=== PATIENT | male | born 1950 | race Caucasian/White ===

== ENCOUNTER 2021-11-20 16:44 | Inpatient (IN) | payer OTHER ==
[2021-11-20] MEDS ORDERED: MAGNESIUM HYDROX 2400MG/30ML ORAL SUSPENSION 30 ML CUP PO PRN (17:34)
[2021-11-20] MEDS ORDERED: MAG HYDROX/AL HYDROX/SIMETH 30 ML UNIT-DOSE CUP PO PRN (17:34)
[2021-11-20] MEDS ORDERED: DICYCLOMINE HCL 10 MG CAPSULE PO PRN (17:34)
[2021-11-20] MEDS ORDERED: NICOTINE 10 MG CARTRIDGE (INHALER) IH PRN (17:34)
[2021-11-20] MEDS ORDERED: IBUPROFEN 600 MG TABLET (FP) PO PRN (17:34)
[2021-11-20] MEDS ORDERED: ACETAMINOPHEN 325 MG TABLET (FP) PO PRN ×2 (17:34)
[2021-11-20] MEDS ORDERED: IBUPROFEN 400 MG TABLET (FP) PO PRN (17:34)
[2021-11-20] MEDS ORDERED: MAGNESIUM CITRATE 300 ML BOTTLE PO PRN (17:34)
[2021-11-20] MEDS ORDERED: LOPERAMIDE HCL 2 MG CAPSULE PO PRN (17:34)
[2021-11-20] MEDS ORDERED: BENZOCAINE/MENTHOL (CHLORASEPTIC ) LOZENGE MM PRN (17:34)
[2021-11-20] MEDS ORDERED: cloNIDine HCL 0.1 MG TABLET PO PRN (17:34)
[2021-11-20] MEDS ORDERED: NALOXONE HCL (KLOXXADO) 8 MG SPRAY NS PRN (17:34)
[2021-11-20] MEDS ORDERED: METHOCARBAMOL 500 MG TABLET PO PRN (17:34)
[2021-11-20] MEDS ORDERED: methaDONE HCL 10 MG TABLET (FOR DETOX USE ONLY) PO ONE (17:34)
[2021-11-20] MEDS ORDERED: BISMUTH SUBSALICYLATE 524 MG/30 ML PO PRN (17:34)
[2021-11-20 18:14] VITALS: BMI 24.5
[2021-11-20] MEDS: MELATONIN 5 MG TABLETS PO SCH (22:12)
[2021-11-20] MEDS: THIAMINE HCL 100 MG TABLET (FP) PO SCH (22:12)
[2021-11-21 09:45] LABS: HEMOGLOBIN 12.1 GM/dL (11.7-16.9); MCH 31.8 pg (25.7-33.7); MCHC 35.8 g/dl (32.0-35.9); MEAN PLT VOLUME 7.8 fl (7.5-11.1); PLATELET COUNT 135 10^3/uL (134-434); RBC 3.82 M/mm3 (4.00-5.60); RDW 13.7 % (11.9-15.9); WHITE BLOOD COUNT 4.9 K/mm3 (4.0-10.0)
[2021-11-21] MEDS ORDERED: methaDONE HCL 10 MG TABLET (FOR DETOX USE ONLY) PO ONE (10:00)
[2021-11-21 10:08] LABS: ALBUMIN 3.1 g/dl (3.4-5.0); CALCIUM 8.2 mg/dL (8.5-10.1)
[2021-11-21 10:09] LABS: CREATININE 0.8 mg/dL (0.55-1.3)
[2021-11-21 10:10] LABS: TOT PROT 6.2 g/dl (6.4-8.2)
[2021-11-21 10:11] LABS: BILIRUBIN,TOTAL 0.5 mg/dL (0.2-1)
[2021-11-21] MEDS: PRENATAL VITAMINS W/ FOLIC ACID TABLET (FP) PO SCH (10:16)
[2021-11-21] MEDS: ATENOLOL 25 MG TABLET (FP) PO SCH (10:16)
[2021-11-21] MEDS: ASPIRIN 81 MG CHEWABLE TABLETS PO SCH (10:16)
[2021-11-21] MEDS: THIAMINE HCL 100 MG TABLET (FP) PO SCH (22:28)
[2021-11-21] MEDS: MELATONIN 5 MG TABLETS PO SCH (22:28)
[2021-11-22] MEDS ORDERED: methaDONE HCL 10 MG TABLET (FOR DETOX USE ONLY) PO ONE (10:00)
[2021-11-22] MEDS: PRENATAL VITAMINS W/ FOLIC ACID TABLET (FP) PO SCH (10:09)
[2021-11-22] MEDS: ASPIRIN 81 MG CHEWABLE TABLETS PO SCH (10:09)
[2021-11-22] MEDS: ATENOLOL 25 MG TABLET (FP) PO SCH (10:10)
[2021-11-22] MEDS: MELATONIN 5 MG TABLETS PO SCH (22:23)
[2021-11-22] MEDS: THIAMINE HCL 100 MG TABLET (FP) PO SCH (22:23)
[2021-11-23] MEDS ORDERED: methaDONE HCL 10 MG TABLET (FOR DETOX USE ONLY) PO ONE ×2 (10:00)
[2021-11-23] MEDS: PRENATAL VITAMINS W/ FOLIC ACID TABLET (FP) PO SCH (10:25)
[2021-11-23] MEDS: ASPIRIN 81 MG CHEWABLE TABLETS PO SCH (10:25)
[2021-11-23] MEDS: ATENOLOL 25 MG TABLET (FP) PO SCH (10:25)
[2021-11-23] MEDS: THIAMINE HCL 100 MG TABLET (FP) PO SCH (22:33)
[2021-11-23] MEDS: MELATONIN 5 MG TABLETS PO SCH (22:33)
[2021-11-24] MEDS ORDERED: methaDONE HCL 10 MG TABLET (FOR DETOX USE ONLY) PO ONE (10:00)
[2021-11-24] MEDS: ATENOLOL 25 MG TABLET (FP) PO SCH (10:11)
[2021-11-24] MEDS: PRENATAL VITAMINS W/ FOLIC ACID TABLET (FP) PO SCH (10:11)
[2021-11-24] MEDS: ASPIRIN 81 MG CHEWABLE TABLETS PO SCH (10:11)
[2021-11-24 12:53] VITALS: RESP 18
[2021-11-24] MEDS: MELATONIN 5 MG TABLETS PO SCH (22:37)
[2021-11-24] MEDS: THIAMINE HCL 100 MG TABLET (FP) PO SCH (22:37)
[2021-11-25 08:51] VITALS: BP 104/69; PULSE 78; TEMP 97.7
[2021-11-25] MEDS: ATENOLOL 25 MG TABLET (FP) PO SCH (09:02)
[2021-11-25] MEDS: PRENATAL VITAMINS W/ FOLIC ACID TABLET (FP) PO SCH (09:02)
[2021-11-25] MEDS: ASPIRIN 81 MG CHEWABLE TABLETS PO SCH (09:02)
== END 2021-11-25 09:14 | disposition home or self-care (01) | DRG 897 ==
LOC: YASAS 16:44 → Y3N 18:13
PROVIDERS: ADMIT Allergy & Immunology; ATTEND Surgery
PROC: HZ2ZZZZ Detoxification Services for Substance Abuse Treatment (ICD-10-PCS; principal; 2021-11-20)
DX: F11.23 Opioid dependence with withdrawal (principal); F12.20 Cannabis dependence, uncomplicated; F17.210 Nicotine dependence, cigarettes, uncomplicated; F32.A Depression, unspecified; I10 Essential (primary) hypertension; K74.60 Unspecified cirrhosis of liver; E11.9 Type 2 diabetes mellitus without complications; Z79.84 Long term (current) use of oral hypoglycemic drugs; M54.50 Low back pain, unspecified; G89.29 Other chronic pain; Z86.19 Personal history of other infectious and parasitic diseases
CPT/HCPCS: 36415; 80053; 82962; 85027; 86780; 93005; 93010; C9803-CS; U0003; U0005

== ENCOUNTER 2022-03-02 14:27 | Inpatient (IN) | payer OTHER ==
[2022-03-02 15:46] VITALS: BMI 23.6
[2022-03-02] MEDS ORDERED: BISMUTH SUBSALICYLATE 524 MG/30 ML PO PRN (16:43)
[2022-03-02] MEDS ORDERED: ONDANSETRON *ODT* 4 MG TABLET SL PRN (16:43)
[2022-03-02] MEDS ORDERED: BENZOCAINE/MENTHOL (CHLORASEPTIC ) LOZENGE MM PRN (16:43)
[2022-03-02] MEDS ORDERED: MAG HYDROX/AL HYDROX/SIMETH 30 ML UNIT-DOSE CUP PO PRN (16:43)
[2022-03-02] MEDS ORDERED: LOPERAMIDE HCL 2 MG CAPSULE PO PRN (16:43)
[2022-03-02] MEDS ORDERED: NALOXONE HCL 0.4 MG/ML VIAL IM PRN (16:43)
[2022-03-02] MEDS ORDERED: IBUPROFEN 600 MG TABLET (FP) PO PRN (16:43)
[2022-03-02] MEDS ORDERED: DICYCLOMINE HCL 10 MG CAPSULE PO PRN (16:43)
[2022-03-02] MEDS ORDERED: NALOXONE HCL (KLOXXADO) 8 MG SPRAY NS PRN (16:43)
[2022-03-02] MEDS ORDERED: P-EPHED 60MG/TRIPROLIDI 2.5MG TABLET PO PRN (16:43)
[2022-03-02] MEDS ORDERED: ACETAMINOPHEN 325 MG TABLET (FP) PO PRN ×2 (16:43)
[2022-03-02] MEDS ORDERED: MAGNESIUM HYDROX 2400MG/30ML ORAL SUSPENSION 30 ML CUP PO PRN (16:43)
[2022-03-02] MEDS ORDERED: POLYETHYLENE GLYCOL (HEALTHYLAX) 3350 17 GM PACKET PO PRN (16:43)
[2022-03-02] MEDS ORDERED: guaiFENesin 200 MG/10 ML 10 ML UNIT-DOSE CUPS PO PRN (16:43)
[2022-03-02] MEDS ORDERED: IBUPROFEN 400 MG TABLET (FP) PO PRN (16:43)
[2022-03-02] MEDS: ASPIRIN 81 MG CHEWABLE TABLETS PO SCH (19:00)
[2022-03-02] MEDS: THIAMINE HCL 100 MG TABLET (FP) PO SCH (22:18)
[2022-03-03] MEDS ORDERED: methaDONE HCL 10 MG TABLET (FOR DETOX USE ONLY) PO ONE (09:39)
[2022-03-03] MEDS: ASPIRIN 81 MG CHEWABLE TABLETS PO SCH (10:17)
[2022-03-03] MEDS: PRENATAL VITAMINS W/ FOLIC ACID TABLET (FP) PO SCH (10:17)
[2022-03-03 11:24] LABS: HEMATOCRIT 37.6 % (35.4-49); HEMOGLOBIN 13.2 GM/dL (11.7-16.9); MCH 31.1 pg (25.7-33.7); MEAN CELL VOLUME 88.9 fl (80-96); MEAN PLT VOLUME 8.1 fl (7.5-11.1); PLATELET COUNT 165 10^3/uL (134-434); RBC 4.23 M/mm3 (4.00-5.60); RDW 13.3 % (11.9-15.9); WHITE BLOOD COUNT 5.4 K/mm3 (4.0-10.0)
[2022-03-03] MEDS: ATENOLOL 25 MG TABLET (FP) PO SCH (12:40)
[2022-03-03 12:51] LABS: ALBUMIN 3.5 g/dl (3.4-5.0); BLOOD UREA NITROGEN 17.1 mg/dL (7-18); CALCIUM 8.9 mg/dL (8.5-10.1)
[2022-03-03 12:54] LABS: CREATININE 0.9 mg/dL (0.55-1.3)
[2022-03-03 12:56] LABS: BILIRUBIN,TOTAL 0.8 mg/dL (0.2-1)
[2022-03-03 13:24] LABS: HIV INTERPRETATION NEGATIVE (NEGATIVE)
[2022-03-03] MEDS: THIAMINE HCL 100 MG TABLET (FP) PO SCH (22:38)
[2022-03-04] MEDS: ATENOLOL 25 MG TABLET (FP) PO SCH (10:24)
[2022-03-04] MEDS: ASPIRIN 81 MG CHEWABLE TABLETS PO SCH (10:24)
[2022-03-04] MEDS: PRENATAL VITAMINS W/ FOLIC ACID TABLET (FP) PO SCH (10:24)
[2022-03-04] MEDS: THIAMINE HCL 100 MG TABLET (FP) PO SCH (23:15)
[2022-03-05] MEDS ORDERED: LIDOCAINE 5% TOPICAL PATCH TP ONE (09:51)
[2022-03-05] MEDS ORDERED: methaDONE HCL 10 MG TABLET (FOR DETOX USE ONLY) PO ONE (10:00)
[2022-03-05] MEDS: ASPIRIN 81 MG CHEWABLE TABLETS PO SCH (10:01)
[2022-03-05] MEDS: PRENATAL VITAMINS W/ FOLIC ACID TABLET (FP) PO SCH (10:02)
[2022-03-05] MEDS: ATENOLOL 25 MG TABLET (FP) PO SCH (10:02)
[2022-03-05] MEDS ORDERED: LIDOCAINE PATCH REMOVAL MC SCH (22:00)
[2022-03-05] MEDS: THIAMINE HCL 100 MG TABLET (FP) PO SCH (22:22)
[2022-03-06 09:24] VITALS: BP 129/70; PULSE 78; RESP 16; TEMP 97.7
[2022-03-06] MEDS: ASPIRIN 81 MG CHEWABLE TABLETS PO SCH (11:04)
[2022-03-06] MEDS: ATENOLOL 25 MG TABLET (FP) PO SCH (11:05)
[2022-03-06] MEDS: PRENATAL VITAMINS W/ FOLIC ACID TABLET (FP) PO SCH (11:05)
== END 2022-03-06 09:45 | disposition home or self-care (01) | DRG 897 ==
LOC: YASAS 14:27 → Y6N 18:10
PROVIDERS: ADMIT Allergy & Immunology; ATTEND Family Medicine
PROC: HZ2ZZZZ Detoxification Services for Substance Abuse Treatment (ICD-10-PCS; principal; 2022-03-02)
DX: F11.23 Opioid dependence with withdrawal (principal); F17.210 Nicotine dependence, cigarettes, uncomplicated; I10 Essential (primary) hypertension; E11.9 Type 2 diabetes mellitus without complications; Z79.84 Long term (current) use of oral hypoglycemic drugs; M54.50 Low back pain, unspecified; G89.29 Other chronic pain; S22.31XD Fracture of one rib, right side, subsequent encounter for fracture with routine healing; X58.XXXD Exposure to other specified factors, subsequent encounter
CPT/HCPCS: 36415; 71101-TC-RT-FY; 80053; 82962; 85027; 86780; 87389; C9803-CS; U0003; U0005

== ENCOUNTER 2022-05-29 11:31 | Inpatient (IN) | payer OTHER ==
[2022-05-29 12:04] VITALS: BMI 22.3
[2022-05-29] MEDS ORDERED: ONDANSETRON *ODT* 4 MG TABLET SL PRN (12:33)
[2022-05-29] MEDS ORDERED: BENZONATATE 200 MG CAPSULE PO PRN (12:33)
[2022-05-29] MEDS ORDERED: ACETAMINOPHEN 325 MG TABLET (FP) PO PRN (12:33)
[2022-05-29] MEDS ORDERED: NICOTINE 10 MG CARTRIDGE (INHALER) IH PRN (12:33)
[2022-05-29] MEDS ORDERED: POLYETHYLENE GLYCOL (HEALTHYLAX) 3350 17 GM PACKET PO PRN (12:33)
[2022-05-29] MEDS ORDERED: NALOXONE HCL 0.4 MG/ML VIAL IM PRN (12:33)
[2022-05-29] MEDS ORDERED: guaiFENesin 600 MG TABLET.ER (FP) PO PRN (12:33)
[2022-05-29] MEDS ORDERED: LOPERAMIDE HCL 2 MG CAPSULE PO PRN (12:33)
[2022-05-29] MEDS ORDERED: MAG HYDROX/AL HYDROX/SIMETH 30 ML UNIT-DOSE CUP PO PRN (12:33)
[2022-05-29] MEDS ORDERED: IBUPROFEN 600 MG TABLET (FP) PO PRN (12:33)
[2022-05-29] MEDS ORDERED: DICYCLOMINE HCL 10 MG CAPSULE PO PRN (12:33)
[2022-05-29] MEDS ORDERED: BISMUTH SUBSALICYLATE 524 MG/30 ML PO PRN (12:33)
[2022-05-29] MEDS ORDERED: NALOXONE HCL (KLOXXADO) 8 MG SPRAY NS PRN (12:33)
[2022-05-29] MEDS ORDERED: BENZOCAINE/MENTHOL (CHLORASEPTIC ) LOZENGE MM PRN (12:33)
[2022-05-29] MEDS ORDERED: MAGNESIUM HYDROX 2400MG/30ML ORAL SUSPENSION 30 ML CUP PO PRN (12:33)
[2022-05-29] MEDS ORDERED: hydrOXYzine PAMOATE 25 MG CAPSULE (FP) PO PRN (12:33)
[2022-05-29] MEDS ORDERED: methaDONE HCL 10 MG TABLET PO ONE (13:43)
[2022-05-29] MEDS: NICOTINE 14 MG/24 HOURS TOPICAL PATCH TD SCH (13:54)
[2022-05-29] MEDS ORDERED: methaDONE HCL 10 MG TABLET (FOR DETOX USE ONLY) PO ONE (14:00)
[2022-05-29] MEDS: PRENATAL VITAMINS W/ FOLIC ACID TABLET (FP) PO SCH (14:05)
[2022-05-29 17:03] LABS: HEMATOCRIT 36.8 % (35.4-49); HEMOGLOBIN 13.1 GM/dL (11.7-16.9); MCH 30.9 pg (25.7-33.7); MCHC 35.6 g/dl (32.0-35.9); MEAN CELL VOLUME 86.8 fl (80-96); MEAN PLT VOLUME 8.4 fl (7.5-11.1); PLATELET COUNT 164 10^3/uL (134-434); RBC 4.24 M/mm3 (4.00-5.60); RDW 13.7 % (11.9-15.9)
[2022-05-29 17:08] LABS: ALBUMIN 3.8 g/dl (3.4-5.0); BLOOD UREA NITROGEN 17.3 mg/dL (7-18); CALCIUM 8.9 mg/dL (8.5-10.1)
[2022-05-29 17:11] LABS: CREATININE 0.8 mg/dL (0.55-1.3)
[2022-05-29 17:12] LABS: BILIRUBIN,TOTAL 1.1 mg/dL (0.2-1); TOT PROT 7.3 g/dl (6.4-8.2)
[2022-05-29] MEDS: METHOCARBAMOL 500 MG TABLET PO PRN (22:18)
[2022-05-29] MEDS: THIAMINE HCL 100 MG TABLET (FP) PO SCH (22:18)
[2022-05-29] MEDS: MELATONIN 5 MG TABLETS PO SCH (22:19)
[2022-05-30] MEDS: PRENATAL VITAMINS W/ FOLIC ACID TABLET (FP) PO SCH (10:25)
[2022-05-30] MEDS: METHOCARBAMOL 500 MG TABLET PO PRN (10:25)
[2022-05-30] MEDS: NICOTINE 14 MG/24 HOURS TOPICAL PATCH TD SCH (10:25)
[2022-05-30] MEDS: IBUPROFEN 400 MG TABLET (FP) PO PRN (11:49)
[2022-05-30] MEDS: cloNIDine HCL 0.1 MG TABLET PO PRN (15:55)
[2022-05-30] MEDS: THIAMINE HCL 100 MG TABLET (FP) PO SCH (22:15)
[2022-05-30] MEDS: MELATONIN 5 MG TABLETS PO SCH (22:15)
[2022-05-31] MEDS ORDERED: methaDONE HCL 10 MG TABLET (FOR DETOX USE ONLY) PO ONE (10:00)
[2022-05-31] MEDS: PRENATAL VITAMINS W/ FOLIC ACID TABLET (FP) PO SCH (10:20)
[2022-05-31] MEDS: METHOCARBAMOL 500 MG TABLET PO PRN (10:20)
[2022-05-31] MEDS: NICOTINE 14 MG/24 HOURS TOPICAL PATCH TD SCH (10:22)
[2022-05-31] MEDS: INSULIN SLIDING SCALE (NOVOLOG) 1 VIAL SQ SCH ×3 (11:00→22:07)
[2022-05-31] MEDS: cloNIDine HCL 0.1 MG TABLET PO PRN (13:50)
[2022-05-31] MEDS: MELATONIN 5 MG TABLETS PO SCH (22:06)
[2022-05-31] MEDS: THIAMINE HCL 100 MG TABLET (FP) PO SCH (22:06)
[2022-06-01] MEDS: INSULIN SLIDING SCALE (NOVOLOG) 1 VIAL SQ SCH ×4 (06:53→22:16)
[2022-06-01] MEDS: PRENATAL VITAMINS W/ FOLIC ACID TABLET (FP) PO SCH (10:08)
[2022-06-01] MEDS: NICOTINE 14 MG/24 HOURS TOPICAL PATCH TD SCH (10:09)
[2022-06-01] MEDS: IBUPROFEN 400 MG TABLET (FP) PO PRN (10:11)
[2022-06-01] MEDS: THIAMINE HCL 100 MG TABLET (FP) PO SCH (22:15)
[2022-06-01] MEDS: MELATONIN 5 MG TABLETS PO SCH (22:15)
[2022-06-02] MEDS: INSULIN SLIDING SCALE (NOVOLOG) 1 VIAL SQ SCH ×4 (06:07→22:11)
[2022-06-02] MEDS ORDERED: methaDONE HCL 10 MG TABLET (FOR DETOX USE ONLY) PO ONE (10:00)
[2022-06-02] MEDS: PRENATAL VITAMINS W/ FOLIC ACID TABLET (FP) PO SCH (10:12)
[2022-06-02] MEDS: THIAMINE HCL 100 MG TABLET (FP) PO SCH (22:10)
[2022-06-02] MEDS: MELATONIN 5 MG TABLETS PO SCH (22:10)
[2022-06-03] MEDS: INSULIN SLIDING SCALE (NOVOLOG) 1 VIAL SQ SCH ×2 (06:20→11:01)
[2022-06-03 09:44] VITALS: BP 111/75; PULSE 74; RESP 18; TEMP 97.3
[2022-06-03] MEDS: PRENATAL VITAMINS W/ FOLIC ACID TABLET (FP) PO SCH (10:48)
== END 2022-06-03 10:50 | disposition home or self-care (01) | DRG 897 ==
LOC: YASAS 11:31 → Y6N 13:00
PROVIDERS: ADMIT Allergy & Immunology; ATTEND Surgery
PROC: HZ2ZZZZ Detoxification Services for Substance Abuse Treatment (ICD-10-PCS; principal; 2022-05-29)
DX: F11.23 Opioid dependence with withdrawal (principal); F19.282 Other psychoactive substance dependence with psychoactive substance-induced sleep disorder; F12.20 Cannabis dependence, uncomplicated; F17.210 Nicotine dependence, cigarettes, uncomplicated; F32.A Depression, unspecified; I10 Essential (primary) hypertension; E11.9 Type 2 diabetes mellitus without complications; Z79.84 Long term (current) use of oral hypoglycemic drugs; M54.50 Low back pain, unspecified; G89.29 Other chronic pain; Z86.19 Personal history of other infectious and parasitic diseases; Z88.0 Allergy status to penicillin; Z91.013 Allergy to seafood
CPT/HCPCS: 36415; 80053; 82962; 85027; 86780; 87811; C9803-CS; U0003; U0005

== ENCOUNTER 2023-02-25 14:11 | Inpatient (IN) | payer OTHER ==
[2023-02-25 14:36] VITALS: BMI 21.6
[2023-02-25] MEDS ORDERED: IBUPROFEN 600 MG TABLET (FP) PO PRN (15:21)
[2023-02-25] MEDS ORDERED: guaiFENesin 600 MG TABLET.ER (FP) PO PRN (15:21)
[2023-02-25] MEDS ORDERED: BISMUTH SUBSALICYLATE 524 MG/30 ML PO PRN (15:21)
[2023-02-25] MEDS ORDERED: IBUPROFEN 400 MG TABLET (FP) PO PRN (15:21)
[2023-02-25] MEDS ORDERED: ONDANSETRON *ODT* 4 MG TABLET SL PRN (15:21)
[2023-02-25] MEDS ORDERED: DICYCLOMINE HCL 10 MG CAPSULE PO PRN (15:21)
[2023-02-25] MEDS ORDERED: MAGNESIUM HYDROX 2400MG/30ML ORAL SUSPENSION 30 ML CUP PO PRN (15:21)
[2023-02-25] MEDS ORDERED: NALOXONE HCL (KLOXXADO) 8 MG SPRAY NS PRN (15:21)
[2023-02-25] MEDS ORDERED: BENZONATATE 200 MG CAPSULE PO PRN (15:21)
[2023-02-25] MEDS ORDERED: POLYETHYLENE GLYCOL (HEALTHYLAX) 3350 17 GM PACKET PO PRN (15:21)
[2023-02-25] MEDS ORDERED: diazePAM 5 MG TABLET PO PRN (15:21)
[2023-02-25] MEDS ORDERED: ACETAMINOPHEN 325 MG TABLET (FP) PO PRN (15:21)
[2023-02-25] MEDS ORDERED: BENZOCAINE/MENTHOL (CHLORASEPTIC ) LOZENGE MM PRN (15:21)
[2023-02-25] MEDS ORDERED: BUPRENORPHINE HCL 150 MCG, BUPRENORPHINE HCL 75 MCG BC ONE (15:21)
[2023-02-25] MEDS ORDERED: BUPRENORPHINE HCL 150 MCG, BUPRENORPHINE HCL 75 MCG BC PRN (15:21)
[2023-02-25] MEDS ORDERED: cloNIDine HCL 0.1 MG TABLET PO ONE (15:21)
[2023-02-25] MEDS ORDERED: LOPERAMIDE HCL 2 MG CAPSULE PO PRN (15:21)
[2023-02-25] MEDS ORDERED: MAG HYDROX/AL HYDROX/SIMETH 30 ML UNIT-DOSE CUP PO PRN (15:21)
[2023-02-25] MEDS ORDERED: NALOXONE HCL 0.4 MG/ML VIAL IM PRN (15:21)
[2023-02-25] MEDS ORDERED: hydrOXYzine PAMOATE 25 MG CAPSULE (FP) PO PRN (15:21)
[2023-02-25] MEDS ORDERED: BUPRENORPHINE HCL 75 MCG FILM BC ONE (15:47)
[2023-02-25] MEDS ORDERED: BUPRENORPHINE HCL 150 MCG FILM BC ONE (15:47)
[2023-02-25] MEDS: NICOTINE 7 MG/24 HOURS TOPICAL PATCH TD SCH (16:09)
[2023-02-25] MEDS: PRENATAL VITAMINS W/ FOLIC ACID TABLET (FP) PO SCH (16:09)
[2023-02-25] MEDS: THIAMINE HCL 100 MG TABLET (FP) PO SCH (22:16)
[2023-02-25] MEDS: MELATONIN 5 MG TABLETS PO SCH (22:17)
[2023-02-26] MEDS ORDERED: BUPRENORPHINE HCL 150 MCG, BUPRENORPHINE HCL 75 MCG BC PRN
[2023-02-26] MEDS: BUPRENORPHINE HCL 150 MCG, BUPRENORPHINE HCL 75 MCG BC SCH ×2 (05:38→18:04)
[2023-02-26 10:46] LABS: POTASSIUM 4.7 mmol/L (3.5-5.1)
[2023-02-26] MEDS: PRENATAL VITAMINS W/ FOLIC ACID TABLET (FP) PO SCH (10:51)
[2023-02-26] MEDS: NICOTINE 7 MG/24 HOURS TOPICAL PATCH TD SCH (10:51)
[2023-02-26 10:59] LABS: HEMATOCRIT 34.1 % (35.4-49); HEMOGLOBIN 11.9 GM/dL (11.7-16.9); MCH 30.6 pg (25.7-33.7); MEAN CELL VOLUME 87.3 fl (80-96); MEAN PLT VOLUME 7.6 fl (7.5-11.1); PLATELET COUNT 166 10^3/uL (134-434); RBC 3.91 M/mm3 (4.00-5.60); RDW 13.7 % (11.9-15.9); WHITE BLOOD COUNT 4.9 K/mm3 (4.0-10.0)
[2023-02-26 11:00] LABS: CALCIUM 8.4 mg/dL (8.5-10.1)
[2023-02-26 11:02] LABS: ALBUMIN 3.2 g/dl (3.4-5.0)
[2023-02-26 11:04] LABS: CREATININE 0.7 mg/dL (0.55-1.3)
[2023-02-26 11:05] LABS: BILIRUBIN,TOTAL 0.7 mg/dL (0.2-1); TOT PROT 6.6 g/dl (6.4-8.2)
[2023-02-26] MEDS: METHOCARBAMOL 500 MG TABLET PO PRN (22:47)
[2023-02-26] MEDS: THIAMINE HCL 100 MG TABLET (FP) PO SCH (22:47)
[2023-02-26] MEDS: MELATONIN 5 MG TABLETS PO SCH (22:47)
[2023-02-27] MEDS: BUPRENORPHINE HCL 450 MCG FILM BC SCH ×2 (06:01→18:09)
[2023-02-27] MEDS: PRENATAL VITAMINS W/ FOLIC ACID TABLET (FP) PO SCH (10:44)
[2023-02-27] MEDS: NICOTINE 7 MG/24 HOURS TOPICAL PATCH TD SCH (10:44)
[2023-02-27] MEDS: MELATONIN 5 MG TABLETS PO SCH (22:38)
[2023-02-27] MEDS: cloNIDine HCL 0.1 MG TABLET PO PRN (22:38)
[2023-02-27] MEDS: THIAMINE HCL 100 MG TABLET (FP) PO SCH (22:38)
[2023-02-28] MEDS: BUPRENORPHINE/NALOXONE 4 MG/1 MG FILM PACKET SL SCH ×2 (06:07→19:15)
[2023-02-28] MEDS: NICOTINE 7 MG/24 HOURS TOPICAL PATCH TD SCH (10:18)
[2023-02-28] MEDS: PRENATAL VITAMINS W/ FOLIC ACID TABLET (FP) PO SCH (10:28)
[2023-02-28] MEDS: THIAMINE HCL 100 MG TABLET (FP) PO SCH (22:29)
[2023-02-28] MEDS: MELATONIN 5 MG TABLETS PO SCH (22:29)
[2023-02-28] MEDS: METHOCARBAMOL 500 MG TABLET PO PRN (22:29)
[2023-02-28] MEDS: cloNIDine HCL 0.1 MG TABLET PO PRN (22:30)
[2023-03-01] MEDS ORDERED: BUPRENORPHINE/NALOXONE 8 MG/2 MG FILM PACKET SL ONE (06:00)
[2023-03-01 06:58] VITALS: TEMP 97.7
[2023-03-01 09:13] VITALS: BP 124/73; PULSE 77; RESP 18
[2023-03-01] MEDS: PRENATAL VITAMINS W/ FOLIC ACID TABLET (FP) PO SCH (09:26)
[2023-03-01] MEDS: NICOTINE 7 MG/24 HOURS TOPICAL PATCH TD SCH (09:26)
== END 2023-03-01 10:45 | disposition home or self-care (01) | DRG 897 ==
LOC: YASAS 14:11 → Y6N 15:52
PROVIDERS: ADMIT Allergy & Immunology; ATTEND Allergy & Immunology
PROC: HZ2ZZZZ Detoxification Services for Substance Abuse Treatment (ICD-10-PCS; principal; 2023-02-25)
DX: F11.23 Opioid dependence with withdrawal (principal); F19.280 Other psychoactive substance dependence with psychoactive substance-induced anxiety disorder; F19.282 Other psychoactive substance dependence with psychoactive substance-induced sleep disorder; F12.20 Cannabis dependence, uncomplicated; F17.210 Nicotine dependence, cigarettes, uncomplicated; F19.24 Other psychoactive substance dependence with psychoactive substance-induced mood disorder; B18.2 Chronic viral hepatitis C; E11.9 Type 2 diabetes mellitus without complications; Z79.84 Long term (current) use of oral hypoglycemic drugs; I25.10 Atherosclerotic heart disease of native coronary artery without angina pectoris; I10 Essential (primary) hypertension; M54.50 Low back pain, unspecified; G89.29 Other chronic pain; Z20.828 Contact with and (suspected) exposure to other viral communicable diseases; Z88.0 Allergy status to penicillin
CPT/HCPCS: 36415; 80053; 82962; 85027; 86780; 87635; 87811

== ENCOUNTER 2023-08-20 12:58 | Inpatient (IN) | payer OTHER ==
[2023-08-20 14:06] VITALS: BMI 20.1
[2023-08-20] MEDS ORDERED: MAGNESIUM HYDROX 2400MG/30ML ORAL SUSPENSION 30 ML CUP PO PRN (14:37)
[2023-08-20] MEDS ORDERED: BENZOCAINE/MENTHOL (CHLORASEPTIC ) LOZENGE MM PRN (14:37)
[2023-08-20] MEDS ORDERED: LOPERAMIDE HCL 2 MG CAPSULE PO PRN (14:37)
[2023-08-20] MEDS ORDERED: POLYETHYLENE GLYCOL (HEALTHYLAX) 3350 17 GM PACKET PO PRN (14:37)
[2023-08-20] MEDS ORDERED: guaiFENesin 600 MG TABLET.ER (FP) PO PRN (14:37)
[2023-08-20] MEDS ORDERED: ACETAMINOPHEN 325 MG TABLET (FP) PO PRN (14:37)
[2023-08-20] MEDS ORDERED: ONDANSETRON *ODT* 4 MG TABLET SL PRN (14:37)
[2023-08-20] MEDS ORDERED: MAG HYDROX/AL HYDROX/SIMETH 30 ML UNIT-DOSE CUP PO PRN (14:37)
[2023-08-20] MEDS ORDERED: BISMUTH SUBSALICYLATE 524 MG/30 ML PO PRN (14:37)
[2023-08-20] MEDS ORDERED: IBUPROFEN 600 MG TABLET (FP) PO PRN (14:37)
[2023-08-20] MEDS ORDERED: IBUPROFEN 400 MG TABLET (FP) PO PRN (14:37)
[2023-08-20] MEDS ORDERED: NALOXONE (NARCAN) HCL 4 MG/0.1 ML SPRAY NS PRN (14:37)
[2023-08-20] MEDS ORDERED: DICYCLOMINE HCL 10 MG CAPSULE PO PRN (14:37)
[2023-08-20] MEDS ORDERED: NALOXONE HCL 0.4 MG/ML VIAL IM PRN (14:37)
[2023-08-20] MEDS ORDERED: BENZONATATE 200 MG CAPSULE PO PRN (14:37)
[2023-08-20] MEDS ORDERED: amLODIPine BESYLATE 5 MG TABLET (FP) PO SCH (15:15)
[2023-08-20] MEDS ORDERED: metFORMIN HCL 500 MG TABLET (FP) PO SCH (16:30)
[2023-08-20] MEDS: amLODIPine BESYLATE 5 MG TABLET (FP) PO SCH (18:24)
[2023-08-20] MEDS: metFORMIN HCL 500 MG TABLET (FP) PO SCH (18:24)
[2023-08-20] MEDS: INSULIN ASPART SLIDING SCALE (NOVOLOG) 1 VIAL SQ SCH (18:25)
[2023-08-20] MEDS: PRENATAL VITAMINS W/ FOLIC ACID TABLET (FP) PO SCH (18:26)
[2023-08-20] MEDS: METHOCARBAMOL 500 MG TABLET PO PRN (22:22)
[2023-08-20] MEDS: THIAMINE 100 MG TABLET PO SCH (22:23)
[2023-08-20] MEDS: MELATONIN 5 MG TABLETS PO SCH (22:23)
[2023-08-21] MEDS: hydrOXYzine PAMOATE 25 MG CAPSULE (FP) PO PRN (01:51)
[2023-08-21 11:38] LABS: HEMOGLOBIN 11.8 GM/dL (11.7-16.9); MCH 30.3 pg (25.7-33.7); MCHC 34.8 g/dl (32.0-35.9); MEAN PLT VOLUME 7.6 fl (7.5-11.1); PLATELET COUNT 134 10^3/uL (134-434); RBC 3.91 M/mm3 (4.00-5.60); RDW 14.5 % (11.9-15.9); WHITE BLOOD COUNT 4.9 K/mm3 (4.0-10.0)
[2023-08-21 12:03] LABS: CHLORIDE 110 mmol/L (98-107); POTASSIUM 4.2 mmol/L (3.5-5.1); SODIUM 143 mmol/L (136-145)
[2023-08-21 12:06] LABS: GLUCOSE,RANDOM 119 mg/dL (74-106)
[2023-08-21 12:07] LABS: ALBUMIN 3.3 g/dl (3.4-5.0); BLOOD UREA NITROGEN 19.6 mg/dL (7-18); CALCIUM 8.7 mg/dL (8.5-10.1)
[2023-08-21 12:08] LABS: ANION GAP 4 mmol/L (4-13); CO2 29 mmol/L (21-32)
[2023-08-21 12:09] LABS: SGPT/ALT 16 U/L (13-61)
[2023-08-21 12:10] LABS: CREATININE 0.6 mg/dL (0.55-1.3); SGOT/AST 17 U/L (15-37)
[2023-08-21 12:11] LABS: BILIRUBIN,TOTAL 0.8 mg/dL (0.2-1); TOT PROT 6.6 g/dl (6.4-8.2)
[2023-08-21 12:12] LABS: ALK PHOS 91 U/L (45-117)
[2023-08-22] MEDS ORDERED: cloNIDine HCL 0.1 MG TABLET PO PRN (09:23)
[2023-08-22] MEDS: methaDONE HCL 10 MG TABLET (FOR DETOX USE ONLY) PO ONE (10:08)
[2023-08-24] MEDS: methaDONE HCL 10 MG TABLET (FOR DETOX USE ONLY) PO ONE (09:35)
[2023-08-26 13:10] VITALS: BP 115/73; PULSE 96; RESP 18; TEMP 96.9
== END 2023-08-26 15:37 | disposition home or self-care (01) | DRG 897 ==
LOC: YASAS 12:58 → Y6N 15:39
PROVIDERS: ADMIT Allergy & Immunology; ATTEND Surgery
PROC: HZ2ZZZZ Detoxification Services for Substance Abuse Treatment (ICD-10-PCS; principal; 2023-08-20)
DX: F11.23 Opioid dependence with withdrawal (principal); F19.282 Other psychoactive substance dependence with psychoactive substance-induced sleep disorder; F17.210 Nicotine dependence, cigarettes, uncomplicated; F32.9 Major depressive disorder, single episode, unspecified; I25.10 Atherosclerotic heart disease of native coronary artery without angina pectoris; I10 Essential (primary) hypertension; E11.9 Type 2 diabetes mellitus without complications; Z79.84 Long term (current) use of oral hypoglycemic drugs; B18.2 Chronic viral hepatitis C
CPT/HCPCS: 36415; 71045-TC-FY; 80053; 80305; 80307; 82962; 83036; 85027; 86780; 87811; 93005; 93010